=== PATIENT | male | born 1965 | race Hispanic/Latino ===

== ENCOUNTER 2018-02-02 21:24 | Emergency (ER) | payer OTHER ==
[~2018-02-02] VITALS: Ht 162.6 cm; Wt 72.6 kg
[2018-02-02] MEDS ORDERED: HYDROCODONE/APAP 5MG-325MG TAB PO ONE (22:30)
[2018-02-02 23:29] VITALS: BP 134/76
== END 2018-02-02 23:25 | disposition home or self-care (01) ==
LOC: FSED 21:24
DX: M25.522 Pain in left elbow (principal); M25.521 Pain in right elbow; S50.02XA Contusion of left elbow, initial encounter; S50.01XA Contusion of right elbow, initial encounter; V92.09XA Drowning and submersion due to fall off unspecified watercraft, initial encounter; Y92.828 Other wilderness area as the place of occurrence of the external cause
CPT/HCPCS: 72110; 99283